=== PATIENT | male | born 2000 | race Caucasian/White ===

== ENCOUNTER 2023-07-31 22:00 | Emergency (ER) | payer SELFPAY ==
[~2023-07-31] VITALS: Ht 177.8 cm; Wt 83.9 kg
[2023-07-31 22:18] VITALS: BP 123/60; PULSE 86; RESP 16; TEMP 99.3; O2SAT 98
[2023-07-31] MEDS ORDERED: IBUP-1842 PO ×3 (22:28→22:32)
[2023-07-31 22:55] VITALS: BP 123/60; PULSE 86; RESP 16; TEMP 99.3; O2SAT 99
== END 2023-07-31 22:55 ==
LOC: MED 22:00
DX: S09.92XA Unspecified injury of nose, initial encounter (principal); Z79.1 Long term (current) use of non-steroidal anti-inflammatories (NSAID); V89.2XXA Person injured in unspecified motor-vehicle accident, traffic, initial encounter; Y93.89 Activity, other specified; Y92.410 Unspecified street and highway as the place of occurrence of the external cause; Y99.8 Other external cause status
CPT/HCPCS: 99283